=== PATIENT | female | born 1990 | race Two or more races ===

== ENCOUNTER 2017-09-28 15:37 | Outpatient (CLI) | payer OTHER ==
--- NOTE | 2017-09-28 16:07 | Diagnostic Imaging Report ---
Indication: COUGH Technique: 2 views of the chest Comparison: none. Findings: Lungs and pleural spaces are clear. Heart size is normal. Bones are unremarkable.. Impression: No acute process
== END 2017-09-28 17:37 | disposition home or self-care (01) ==
LOC: RAD 15:37
DX: R07.9 Chest pain, unspecified (principal); R05 Cough
CPT/HCPCS: 71020

== ENCOUNTER 2018-05-27 15:50 | Outpatient (RCR) | payer OTHER | END 2018-05-29 | disposition home or self-care (01) | LOC: PTY 15:50 | DX: M54.9 Dorsalgia, unspecified (principal) ==

== ENCOUNTER 2018-06-01 14:14 | Outpatient (RCR) | payer OTHER | END 2018-06-29 | disposition home or self-care (01) | LOC: PTY 14:14 | DX: M54.9 Dorsalgia, unspecified (principal) ==